=== PATIENT | female | born 1985 | race Caucasian/White ===

== ENCOUNTER 2020-01-13 18:21 | Inpatient (IN) | payer OTHER ==
[~2020-01-13] VITALS: Ht 170.2 cm; Wt 86.6 kg
--- NOTE | 2020-01-14 13:14 | EKG ---
[facility] [address] [facility] [place], [place] [address] Signed Sinus bradycardia Possible Left atrial enlargement Borderline ECG No previous ECGs available Confirmed by RADHA PIÑA MD ([id number]) on 01/14/2020 1:13:56 PM Electronically Signed By: RADHA PIÑA MD 01/14/20 1314 PATIENT NAME: MARYURI PURVIS Electrocardiogram DATE OF : 89 PHYSICIAN: RADHA PIÑA MD REPORT #: [id number] REPORT IS CONFIDENTIAL AND NOT TO BE RELEASED WITHOUT AUTHORIZATION
--- NOTE | 2020-01-15 08:13 | PR ---
[facility] [address] [place], [place] [address] Signed PP Progress Notes Datetime Report Generated by DANGELO: 01/15/2020 08:12 SUBJECTIVE: [id number] Pain: Within Normal Limits Vital Signs: [id number] Vital Signs: Reviewed Notable Details: bradycardia EXAM: Ongoing Cardiovascular: Not Done Respiratory: Not Done Abdomen/Uterus: Abnormal Lochia: Normal Vulva/Perineum: Not Done Breasts: Not Done CVA Tenderness: Not Done Extremities: Normal Incision: Not Applicable Progress: Normal Exam Comments: Fundus firm, NT @ U-1. H/H 11.1/33.6, WBC 10.3, plat 137k IMPRESSION/PLAN/PROCEDURES: [id number] Impression: Normal Progression Other Impression: Bradycardia Plan: Continue Present Management Other Procedures: telemetry Progress Notes: Doing well overall. Her HR has remained in the 40s to 50s and no decrease to 30s as previously. Telemetry ordered by hospitalist and no other abnormal rhythms identified thus far. She is just over 24 hrs from delivery at this time. She may be able to be discharged later today if peds agreeable. Signing Physician: Claribel Cordoba MD Copies: ~ *Electronically Signed* 01/15/20811 CLARIBEL CORDOBA MD PATIENT NAME: MARYURI PURVIS PROGRESS NOTE DATE OF : 89 PHYSICIAN: CLARIBEL CORDOBA MD RPT #: [id number] REPORT IS CONFIDENTIAL AND NOT TO BE RELEASED WITHOUT AUTHORIZATION
== END 2020-01-15 14:55 | disposition home or self-care (01) | DRG 807 ==
LOC: FBCO → FBC 19:00 → FBCO 01-15 10:27 → FBC 01-15 14:55 → FBCO 01-15 17:19
PROVIDERS: ADMIT Obstetrics & Gynecology; ATTEND Obstetrics & Gynecology
PROC: 10907ZC Drainage of Amniotic Fluid, Therapeutic from Products of Conception, Via Natural or Artificial Opening (ICD-10-PCS; 2020-01-13)
PROC: 00HU33Z Insertion of Infusion Device into Spinal Canal, Percutaneous Approach (ICD-10-PCS; 2020-01-13)
PROC: 3E0R3BZ Introduction of Anesthetic Agent into Spinal Canal, Percutaneous Approach (ICD-10-PCS; 2020-01-13)
PROC: 10E0XZZ Delivery of Products of Conception, External Approach (ICD-10-PCS; principal; 2020-01-14)
PROC: 0KQM0ZZ Repair Perineum Muscle, Open Approach (ICD-10-PCS; 2020-01-14)
DX: O99.824 Streptococcus B carrier state complicating childbirth (principal); Z37.0 Single live birth; Z3A.39 39 weeks gestation of pregnancy; O70.1 Second degree perineal laceration during delivery; O69.81X0 Labor and delivery complicated by cord around neck, without compression, not applicable or unspecified; O99.344 Other mental disorders complicating childbirth; F32.89 Other specified depressive episodes; O99.893 Other specified diseases and conditions complicating puerperium; R00.1 Bradycardia, unspecified; Z79.899 Other long term (current) drug therapy; Z87.891 Personal history of nicotine dependence; Z82.49 Family history of ischemic heart disease and other diseases of the circulatory system
CPT/HCPCS: 01960; 36415; 85027; 93005; 93010; A9270; J2540; J2590; J2795; J3010; J7121

== ENCOUNTER 2024-11-01 09:53 | Emergency (ER) | payer OTHER ==
[~2024-11-01] VITALS: Ht 182.9 cm; Wt 81.4 kg
[2024-11-01] MEDS ORDERED: DEXTROAMP-AMPHE30 MG PO (10:14)
[2024-11-01] MEDS ORDERED: TRAZODONE HCL50 MG (10:14)
[2024-11-01 10:15] LABS: BLOOD/HGB, URINE NEGATIVE (Negative); KETONE, URINE TRACE (Negative); LEUK ESTERASE, URINE NEGATIVE (negative); NITRITE, URINE NEGATIVE (negative)
[2024-11-01] MEDS ORDERED: HYDROCODON-ACE1 EAC8 PO (10:15)
[2024-11-01] MEDS ORDERED: SPIRONOLACTONE100 MG NG (10:15)
[2024-11-01] MEDS ORDERED: UBRELVY100 MG PO (10:15)
[2024-11-01] MEDS ORDERED: DICLOFENAC SODI75 MG PO (10:15)
[2024-11-01] MEDS ORDERED: HYDROmorphone HCL 1 MG/ML SYR IV PRN (10:15)
[2024-11-01] MEDS ORDERED: DULOXETINE HCL60 MG PO (10:15)
[2024-11-01] MEDS ORDERED: SKYRIZI PE150 MG/1 M SQ (10:15)
[2024-11-01] MEDS ORDERED: SODIUM CHLORIDE 0.9% 1,000 ML IV ONE (10:15)
[2024-11-01 10:26] LABS: BASOPHILS 0.7 % (0.1-1.2); EOSINOPHILS 0.6 % (0.7-5.8); LYMPHOCYTES 26.5 % (19.3-51.7); MCH 30.5 PG (25.6-32.2); MCHC 33.2 g/dL (32.2-35.5); MCV 92.1 fL (79.4-94.8); MONOCYTES 9.2 % (4.7-12.5); NEUTROPHILS 62.7 % (34.0-71.1); RBC 4.03 M/uL (3.93-5.22)
[2024-11-01 10:42] LABS: ALT (SGPT) 24.0 U/L (14-59); AST (SGOT) 17.0 U/L (15-37); GLOMERULAR FILTRATION RATE,EST 89.0 mL/min (>60); PROTEIN, TOTAL 7.4 g/dL (6.4-8.2); UREA NITROGEN 11.0 mg/dL (7-18)
[2024-11-01] MEDS ORDERED: HYDROCODON-ACE1 EA10 PO (11:45)
[2024-11-01 12:14] VITALS: BP 110/75
== END 2024-11-01 12:10 | disposition home or self-care (01) ==
LOC: ED 09:53
PROVIDERS: Emergency Medicine
DX: N83.292 Other ovarian cyst, left side (principal); Z87.891 Personal history of nicotine dependence; Z79.899 Other long term (current) drug therapy
CPT/HCPCS: 36415; 74177; 80053; 81003; 83690; 84703; 85025; 96374; 99284-25; J1171; J7030; Q9967